=== PATIENT | male | born 1980 | race Caucasian/White ===

== ENCOUNTER 2016-09-10 12:00 | Inpatient (IN) | payer OTHER ==
--- NOTE | ~2016-09-10 | PN ---
Unit #: [id number] #: [id number] Patient: FREDERIC MUNOZ III [id number] [facility] [address] [place] [address] [id number] I MR#: [id number] NAME: FREDERIC MUNOZ III ROOM: [facility] Age: 35 Sex: M Admission Date: 09/10/2016 : 1980 Attending Physician: Juanita Pedersen M.D. Admitting Physician: Juanita Pedersen M.D. Primary Care Physician: Jerry Doctor Not In System [facility] PROGRESS NOTES DATE 09/12/2016 DISCUSSION Mr. Munoz is a 35-year-old white male who was seen today and chart was reviewed and case was discussed with the staff. He has been and rather seclusive to himself. Meanwhile, he has been doing fairly well and has been showing improvement in his depressive symptoms and he is denying any thoughts of wanting to hurt himself. He has been coming to therapy groups and has been participating. MENTAL STATUS EXAMINATION He was casually dressed with fair personal hygiene acute distress or discomfort. He was awake and alert on interaction with intact orientation. He was anxious with congruent affect. He denies any suicidal or homicidal ideation. His insight and judgement remain slightly impaired. TREATMENT PLAN 1. Will continue on his current medications and treatment protocol. Will monitor his response to the medications and make further adjustments as needed. 2. Will continue to follow up. Dictated by... Anamika Kim/lang TD: 09/12/2016 21:43 JOB #: [id number] Unit #: [id number] #: [id number] Patient: FREDERIC MUNOZ III [facility] PROGRESS NOTES Page 1 of 1 X Juanita Pedersen MD PROGRESS NOTE
--- NOTE | ~2016-09-10 | PN ---
Unit #: [id number] #: [id number] Patient: FREDERIC MUNOZ III [id number] [facility] [address] [place] [address] [id number] I MR#: [id number] NAME: FREDERIC MUNOZ III ROOM: [facility] Age: 35 Sex: M Admission Date: 09/10/2016 : 1980 Attending Physician: Juanita Pedersen M.D. Admitting Physician: Juanita Pedersen M.D. Primary Care Physician: Generic Doctor Not In System [facility] PROGRESS NOTES DATE September 11, 2016 DISCUSSION Mr. Munoz is a 35-year-old, white male who was seen today and chart was reviewed. The case was discussed with the staff. He has been anxious, withdrawn, and reports being uncomfortable (1) reports persistent depressive symptoms with feelings of hopelessness. Meanwhile, he has been cooperative with treatment recommendations and has been taking the medications and tolerating them fairly well. MENTAL STATUS EXAMINATION Young, white male who was casually dressed with a fair personal hygiene and appears to be in no acute distress or discomfort. He was awake and alert on interaction with intact orientation. His mood is anxious and depressed with a congruent affect. Speech is slow and restricted in contents. Reports having suicidal ideation, but denies any homicidal ideation. His insight and judgement remain slightly impaired. TREATMENT PLAN 1. We will continue on his current treatment protocol. Will monitor his response and make further adjustments as needed. 2. We will continue to follow up. Dictated by... Anamika Kim/chauncey TD: 09/12/2016 05:08 JOB #: [id number] Unit #: [id number] #: [id number] Patient: FREDERIC MUNOZ III [facility] PROGRESS NOTES Page 1 of 1 X Juanita Pedersen MD PROGRESS NOTE
--- NOTE | ~2016-09-10 | TN ---
Unit #: [id number] #: [id number] Patient: FREDERIC MUNOZ III [id number] [facility] [address] [place] [address] [id number] I MR#: [id number] NAME: FREDERIC MUNOZ III ROOM: [facility]266 Age: 35 Sex: M Admission Date: 09/10/2016 : 1980 Discharge Date: 09/13/2016 Attending Physician: Juanita Pedersen M.D. Primary Care Physician: Generic Doctor Not In System LOC TRANSFER NOTE DATE OF SERVICE: 09/15/2016 IDENTIFYING DATA Mr. Munoz is a 35-year-old single white male, who was stepped down to the intensive outpatient treatment program from the adult inpatient psychiatric unit, where he was hospitalized under my care from 09/10/2016 to 09/13/2016. HISTORY OF PRESENT ILLNESS He was hospitalized due to worsening depression, feelings of hopelessness, and suicidal ideation with intent and plan and was kept on a suicide watch and was maintained on his medication, which was then adjusted and his Wellbutrin was switched to Effexor due to him reporting that he felt Wellbutrin was making him suicidal. He was doing fairly well and was able to show a therapeutic response to medication adjustment with improvement of depression and anxiety and denied having any suicidal ideation and as such recommendation for the patient to be stepped down to the intensive outpatient treatment program was made and the patient was discharged home. On evaluation by me this morning, the patient was seen to be doing much better, had a good personal hygiene and positive body language and reports feeling good. He denies any triggers or traumatic or stressful events after being discharged from the hospital. He reports that he has been taking his medications regularly and has been tolerating them fairly well. SUBSTANCE ABUSE HISTORY The patient has a history of alcohol and cannabis abuse in the past, but denies any current ongoing substance abuse issues. PAST PSYCHIATRIC HISTORY The patient has had a history of inpatient and outpatient psychiatric treatment and has been diagnosed and treated for bipolar disorder and is currently on Effexor and Risperdal. PAST MEDICAL HISTORY No acute or chronic medical illnesses. ALLERGIES No known medication allergies. PERSONAL AND SOCIAL HISTORY A 35-year-old white male, who reports that he is single, unemployed, and lives with roommates and has fairly decent social support system. Unit #: [id number] #: [id number] Patient: FREDERIC MUNOZ III MENTAL STATUS EXAMINATION Young white male, who was casually dressed with fair personal hygiene, appears to be in no acute distress or discomfort. He was awake and alert on interaction with intact orientation to time, place, and person. His mood was anxious with a congruent affect. His speech was slow and goal directed. He denies any suicidal or homicidal ideations and also denies any auditory or visual hallucinations. His insight and judgment remain slightly impaired. DIAGNOSTIC IMPRESSION Psychiatric: Bipolar disorder, most recent episode depressed, recurrent, moderate, without psychotic features. Medical: None. Stressors: Moderate psychosocial stressors. TREATMENT PLAN 1. The patient has presented with a history of mood disorder and we will recommend enrolling him into the outpatient treatment program and maintaining him on his current medications and we will monitor his response and make further adjustments as needed. 2. Supportive therapy was provided to the patient. ESTIMATED LENGTH OF STAY 14 to 21 days. ABILITY TO HELP SELF Limited. WILLINGNESS TO HELP SELF The patient appears to be willing to help self. STRENGTHS 1. Communicative. 2. Cooperative. PROBLEMS 1. Chronic dysphoric symptoms. 2. Poor social support system. DISCHARGE CRITERIA This will be contingent upon the patient's ability to show resolution of his depression and anxiety and his ability to stay safe to himself, particularly after discharge from the hospital. Dictated by... Anamika Kim/maryuri TD: 09/15/2016 11:52 JOB #: [id number] Unit #: [id number] #: [id number] Patient: FREDERIC MUNOZ III LOC TRANSFER NOTE Page 1 of 1 X Juanita Pedersen MD X LOC TRANSFER NOTE
--- NOTE | ~2016-09-10 | HP ---
Unit #: [id number] #: [id number] Patient: PANCHITO RUTLEDGE III [id number] [place] [address] [id number] I MR#: [id number] NAME: PANCHITO RUTLEDGE III ROOM: 66 Age: 35 Sex: M Admission Date: 09/10/2016 : 1980 Attending Physician: Juanita Pedersen M.D. Admitting Physician: Juanita Pedersen M.D. Primary Care Physician: Jerry Doctor Not In System HISTORY AND PHYSICAL HISTORY OF PRESENT ILLNESS Panchito is a 35 year old admitted to [facility] from our outpatient program after verbalizing wanting to hurt himself. PAST MEDICAL HISTORY Nothing significant. PAST SURGICAL HISTORY Appendectomy. ALLERGIES No known drug allergies. SOCIAL HISTORY Smokes one-half pack per day. Drinks alcohol on a daily basis and admits to using marijuana frequently. FAMILY HISTORY Medically noncontributory. REVIEW OF SYSTEMS CONSTITUTIONAL: No fever or chills. HEENT: Denies any sore throat, ear pain or runny nose. CARDIOVASCULAR: Denies chest pain, irregular heart rhythm or palpitations. CHEST: Denies shortness of breath or cough. No hemoptysis. GASTROINTESTINAL: Denies nausea, vomiting, diarrhea or chronic constipation. ENDOCRINE: Denies history of increased thirst or urination. No recent significant weight loss or gain. GENITOURINARY: Denies dysuria, frequency, or hematuria. SKIN: Denies any rashes. HEMATOLOGIC: Denies history of increased bleeding or bruising. MUSCULOSKELETAL: Denies any hot, swollen joints. No generalized muscle pain. NEUROLOGIC: Denies problems with vision or speech. No frequent, severe headaches. No numbness, tingling or weakness in any extremities. Denies loss of bladder or bowel control. CURRENT MEDICATIONS 1. Effexor XR 75 mg q.h.s. 2. Risperdal 0.5 mg b.i.d. Unit #: [id number] #: [id number] Patient: PANCHITO RUTLEDGE III 3. Milk of Magnesia p.r.n. 4. Maalox p.r.n. 5. Tylenol p.r.n. 6. Nicotine patch 7 mg q day PHYSICAL EXAMINATION GENERAL: Alert, well-nourished, in no apparent distress. VITAL SIGNS: Blood pressure 126/76, heart rate 90, respirations 16, temperature 98.6. WEIGHT: 160 pounds. HEIGHT: 5'10". SKIN: Warm and dry without rash or lesion. HEENT: Normocephalic. TMs not viewed. Oral and nasal passages clear. Conjunctivae clear. Pupils equal, round and reactive to light and accommodation. Extraocular movements intact. NECK: Supple without lymphadenopathy or thyromegaly. HEART: Regular rate and rhythm without murmur. LUNGS: Clear. ABDOMEN: Soft, nontender. : Not done. EXTREMITIES: No evidence of cyanosis, clubbing or edema. Moves all extremities without focal deficit. NEUROLOGICAL: Grossly within normal limits. Cranial Nerves: II: Visual dominguez are intact. III, IV AND : Extraocular movements are intact. Pupils are equal, round and reactive to light. V: Facial sensation is grossly normal. VII: Facial movements and expression are normal. VIII: Auditory acuity grossly intact. IX, X: Uvula is midline. Phonation is normal. XI: Patient shrugs shoulders and turns head normally. XII: Tongue protrudes in the midline. Sensory and Motor Function: Sensory and motor sensation is grossly normal. Motor: moves all extremities well. Coordination: Gait is normal. Deep Tendon Reflexes: Intact. IMPRESSION Psychiatric admission. RECOMMENDATIONS PSYCHIATRIC: Per psychiatrist. MEDICAL: I see no contraindications to participating in facility's activities. MEDICAL PROGNOSIS Good. MEDICAL CONDITION Stable. Dictated by... Brandy Ricardo P.A.-C. for Anamika Ojeda/emiliana Unit #: [id number] #: [id number] Patient: PANCHITO RUTLEDGE III TD: 09/10/2016 20:55 JOB #: [id number] HISTORY AND PHYSICAL Page 1 of 1 X Brandy Ricardo HISTORY AND PHYSICAL
--- NOTE | ~2016-09-10 | PA ---
Unit #: [id number] #: [id number] Patient: FREDERIC MUNOZ III [id number] [facility] [address] [place] [address] [id number] I MR#: [id number] NAME: FREDERIC MUNOZ III ROOM: P266 Age: 35 Sex: M Admission Date: 09/10/2016 : 1980 Date of Assessment: 09/10/2016 Attending Physician: Juanita Pedersen M.D. Admitting Physician: Juanita Pedersen M.D. Primary Care Physician: Generic Doctor Not In System PSYCHIATRIC ASSESSMENT DATE OF SERVICE 09/10/2016. IDENTIFYING DATA Mr. Munoz is a 35-year-old single white male, who is a resident of [place], [place], and was stepped up to the inpatient unit from the intensive outpatient treatment program at Our on a voluntary basis. CHIEF COMPLAINT "I'm feeling suicidal." HISTORY OF PRESENT ILLNESS Mr. uMnoz is a 35-year-old white male with history of bipolar disorder, who has been under my care for quite some time and was on long-acting injectable Invega Sustenna, but then he felt it was making him worse and wanted to get off it and then different other medications were being tried as he felt that he was not making progress and had lot of life circumstances including not being able to find a job and having poor social support system and financial incomes and getting into feelings of despair and feeling nothing was going to work out in his life and as such, was decompensating on his mood and reports that he was manic and now he has been feeling severely depressed and that he is trying to find an employment, but has not been able to do though, due to his depression keeping him from applying and reports while in treatment, he was also given oral medication, but reports feeling it may not be correct either and reports not wanting to stop taking the medication prescribed; however, the patient reports knowing what to do and feels that this being another reason, he needs to come to the program and reports currently decompensating on his mood with feelings of hopelessness and helplessness, and suicidal ideations and as such, recommendation for inpatient level of care for safety and stabilization was made and the patient was stepped up to the inpatient unit. SUBSTANCE ABUSE HISTORY The patient reports history of alcohol and cannabis abuse, but denies any current substance abuse. PAST PSYCHIATRIC HISTORY The patient has had history of psychiatric treatment over the years and has been diagnosed and treated for bipolar disorder and has been diagnosed and treated for mood disorder and is currently on a combination of Risperdal and Wellbutrin, though Wellbutrin was just switched to Effexor. Unit #: [id number] #: [id number] Patient: FREDERIC MUNOZ III PAST MEDICAL HISTORY The patient's medical history is insignificant. ALLERGIES No known medication allergies. PERSONAL AND SOCIAL HISTORY A 35-year-old white male, who reports that he is single, unemployed, and lives at home with his friend and friend's . MENTAL STATUS EXAMINATION Young white male who was casually dressed with fair personal hygiene, appears to be in no acute distress or discomfort. He was awake and alert on interaction with intact orientation to time, place, and person. His mood was anxious and depressed with a congruent affect. His speech was slow and restricted in content. His thought processes were disorganized with some looseness of associations and suicidal ideations. His insight and judgment remain significantly impaired. DIAGNOSTIC IMPRESSION Psychiatric: Bipolar disorder, most recent episode depressed, recurrent, moderate, without psychotic features. Medical: None. Stressors: Moderate psychosocial stressors. TREATMENT PLAN 1. The patient has presented with history of mood disorder and has been decompensating and will need inpatient hospitalization for safety and stabilization. We will start him back on his home medications. We will adjust the medications and monitor response. 2. Supportive therapy was provided to the patient. 3. Safe, structured, and nourishing environment will be provided. ESTIMATED LENGTH OF STAY 5 to 7 days. ABILITY TO HELP SELF Limited. WILLINGNESS TO HELP SELF The patient appears to be willing to help self. STRENGTHS 1. Communicative. 2. Cooperative. PROBLEMS 1. Chronic dysphoric symptoms. 2. Poor social support system. DISCHARGE CRITERIA This will be contingent upon the patient's ability to show resolution of his depression and anxiety and his ability to stay safe to himself and others, particularly after discharge from the hospital. Dictated by... Unit #: [id number] #: [id number] Patient: MATYFREDERIC LAURA Anamika Kim/maryuri TD: 09/11/2016 07:24 JOB #: [id number] PSYCHIATRIC ASSESSMENT Page 1 of 1 X Juanita Pedersen MD PSYCHIATRIC ASSESSMENT
--- NOTE | ~2016-09-10 | DS ---
Unit #: [id number] #: [id number] Patient: FREDERIC MUNOZ III [id number] [facility] [address] [place] [address] [id number] I MR#: [id number] NAME: FREDERIC MUNOZ III ROOM: 66 Age: 35 Sex: M Admission Date: 09/10/2016 : 1980 Discharge Date: 09/13/2016 Attending Physician: Juanita Pedersen M.D. Primary Care Physician: Generic Doctor Not In System DISCHARGE SUMMARY IDENTIFYING DATA Mr. Munoz is a 35-year-old single white male who is a resident of [place], [place] and was stepped up to the inpatient unit from the intensive outpatient treatment program. DISCHARGE DIAGNOSES Psychiatric: Bipolar disorder, most recent episode depressed, recurrent, moderate, without psychotic features. Medical: None. Stressors: Moderate psychosocial stressors. HISTORY OF PRESENT ILLNESS Please see initial psychiatric evaluation for details. PAST PSYCHIATRIC HISTORY Please see initial psychiatric evaluation for details. PAST MEDICAL HISTORY Please see initial psychiatric evaluation for details. HOSPITAL COURSE The patient was admitted to the adult psychiatric unit at [facility] buster Champagne and was oriented to the hospital environment. Routine p.r.n. medications were initiated, and he was started back on his home medications and medications were adjusted, and he was closely monitored. He was taking the medications regularly and was tolerating them fairly well, and was able to show a decent therapeutic response and was able to come out of the detox without any complications and was wanting to go home, and was willing to continue treatment on an outpatient basis and as such, it was decided that he will be discharged home and will continue treatment on an outpatient basis. DISCHARGE CONDITION Stable. PROGNOSIS Fair. Dictated by... Juanita Pedersen M.D. IAA/modl Unit #: [id number] #: [id number] Patient: FREDERIC MUNOZ III TD: 09/13/2016 14:10 JOB #: [id number] DISCHARGE SUMMARY Page 1 of 1 X Juanita Pedersen MD DISCHARGE SUMMARY
[2016-09-11 12:44] LABS: BASOPHIL% 0.5 % (0-2.5); EOSINOPHIL% 0.5 % (0.0-7.0); HEMATOCRIT 40.9 % (38.0-50.0); HEMOGLOBIN 13.5 gm/dL (13.0-16.0); LYMPHOCYTE# 1.6 X10e3 (1.0-3.5); LYMPHOCYTE% 19.1 % (17.0-45.0); MEAN CELL VOLUME 87.3 FL (83-96); MEAN CORPUSCULAR HEMOGLOBIN 28.9 PG (28-34); MEAN CORPUSCULAR HGB CONC 33.1 g/dL (30-36); MONOCYTE# 0.6 X10e3 (0-1.0); MONOCYTE% 7.7 % (3.0-12.0); NEUTROPHIL# 6.1 X10e3 (1.5-7.1); NEUTROPHIL% 72.2 % (40-75); PLATELET COUNT 268 X10e3 (140-420); RED BLOOD COUNT 4.69 X10e (3.90-5.60); RED CELL DISTRIBUTION WIDTH 13.9 % (11.0-15.5); WHITE BLOOD COUNT 8.5 X10e3 (4.0-10.5)
[2016-09-11 12:50] LABS: DIFF IND NO
[2016-09-11 12:54] LABS: BILIRUBIN,TOTAL 0.7 mg/dL (0.2-2.0); BUN/CREATININE RATIO 16.25; CALCIUM SERUM 9.7 mg/dL (8.4-10.2); CREATININE SERUM 0.8 mg/dL (0.6-1.4); GLOM FILT RATE Estimated 117.4 mL/min (>60); POTASSIUM 4.3 mmol/L (3.5-5.1); PROTEIN TOTAL SERUM 6.6 g/dL (6.0-8.3)
[2016-09-12 09:36] LABS: URINE APPEARANCE CLOUDY; URINE BILIRUBIN NEG (NEG); URINE BLOOD NEG (NEG); URINE COLOR YELLOW; URINE GLUCOSE NEG (NEG); URINE KETONE NEG (NEG); URINE LEUKOCYTE ESTERASE NEG (NEG); URINE NITRATE NEG (NEG); URINE PH 6.5 (5-8); URINE PROTEIN NEG (NEG); URINE SPECIFIC GRAVITY 1.016 (1.003-1.035)
[2016-09-12 10:30] LABS: AMPHETAMINE NEG (NEG); BARBITURATES NEG (NEG); BENZODIAZEPINES NEG (NEG); COCAINE NEG (NEG); MARIJUANA POS (NEG); OPIATES NEG (NEG); TRICYCLIC ANTIDEPRESSANTS NEG (NEG); U METHADONE NEG (NEG)
== END 2016-09-13 11:15 | disposition home or self-care (01) | DRG 885 ==
LOC: P2L 12:00 → POF 13:14 → P2L 13:15
PROVIDERS: Psychiatry & Neurology Psychiatry
DX: F31.32 Bipolar disorder, current episode depressed, moderate (principal); R45.851 Suicidal ideations; F17.210 Nicotine dependence, cigarettes, uncomplicated; Z72.89 Other problems related to lifestyle; F12.90 Cannabis use, unspecified, uncomplicated
CPT/HCPCS: 80053; 80307; 81003; 85025